=== PATIENT | male | born 1950 | race Caucasian/White ===

== ENCOUNTER 2018-06-21 08:26 | Day surgery (SDC) | payer MEDICARE ==
[2018-06-17 10:55] VITALS: BMI 28.8
[~2018-06-21 08:26] MED LIST: LACTATED RINGERS 1,000 ML IV SCH; LIDOCAINE 1% 20 ML VIAL (10MG/ML) FOR IV START INTRADERMA PRN; MIDAZOLAM 2 MG/2 ML VIAL IV PRN
[2018-06-21 08:49] VITALS: RESP 18; TEMP 97.7
[2018-06-21] MEDS ORDERED: PROPOFOL 10 MG/ML 20 ML VIAL IV ONE (09:42)
[2018-06-21] MEDS ORDERED: GLYCOPYRROLATE 0.2 MG/ML 2 ML VIAL ONE (09:42)
[2018-06-21] MEDS ORDERED: LIDOCAINE 1% INJ 10MG/ML (20 ML MDV) ONE (09:42)
[2018-06-21 10:24] VITALS: BP 106/78; PULSE 68
--- NOTE | 2018-06-21 14:41 | P.PCN ---
Date of Procedure: 06/21/18 Procedure(s) Performed: Procedure: Esophagogastroduodenoscopy Preoperative diagnosis: History of esophageal stricture. Postoperative diagnosis: Small sliding hiatal hernia with no limitation to the lumen or restriction to the advancement of the endoscope. Preparation and sedation: Were provided by anesthesia. Brief clinical history: The patient is a 68-year-old male who underwent an upper endoscopy in March of last year because of intermittent dysphagia of several years duration and abnormal barium swallow. He was found to have deformity and stenosis at the level of the GE junction and a small sliding hiatal hernia. Biopsies showed gastroesophagitis. He has been on PPI and has been improved. This evaluation is to assess the area of stenosis and ascertain that there was no underlying malignancy or other pathology. Procedure: With the patient on his left lateral decubitus position and after informed consent and adequate sedation, I passed the Olympus GIF H190 video upper endoscope through the cricopharyngeus down the esophagus. GE junction was around 40 cm from the incisors and there was no hesitation to the advancement of the endoscope into the stomach or any obvious stricture to indicate dilation. No tumors or masses were seen. The endoscope was then passed into the stomach which was insufflated with air and inspected in detail including the retroflex view in the cardia. There was no limitation of the space around the endoscope as seen in the retroflex view in the cardia. The stomach did not show any obvious abnormalities. Pyloric channel, duodenal bulb , post bulbar area and descending duodenum appeared within normal limits. Further dilation or biopsies were not indicated then the endoscope was withdrawn. The patient tolerated the procedure well. Plan: The patient was reassured. He will follow up with you as planned and I would be happy to see as needed.
== END 2018-06-21 10:56 | disposition home or self-care (01) ==
LOC: ORWHC2ENDO 08:26
DX: K44.9 Diaphragmatic hernia without obstruction or gangrene (principal); I25.10 Atherosclerotic heart disease of native coronary artery without angina pectoris; I10 Essential (primary) hypertension; E78.5 Hyperlipidemia, unspecified; K21.9 Gastro-esophageal reflux disease without esophagitis; Z79.899 Other long term (current) drug therapy; Z88.5 Allergy status to narcotic agent; Z87.891 Personal history of nicotine dependence
CPT/HCPCS: 43235; J2001; J2704

== ENCOUNTER → 2021-01-21 | Outpatient (CLI) | payer MEDICARE ==
--- NOTE | 2021-01-21 07:52 | CTL ---
EXAMINATION TYPE: CT Low Dose Lung DATE OF EXAM ORDERED: 01/21/2021 HISTORY: Long-term tobacco use. Lung cancer screening CT DLP: 109.[address] CTDI: 3.1 mGy Automated exposure control for dose reduction was used. SCREENING VISIT: Baseline study COMPARISON: Chest CT October 02, 2015 TECHNIQUE: Low dose computed tomography scan was performed through the chest at 1 mm thick sections a nd reconstructed images in the coronal plane at [address] DIAGNOSTIC QUALITY: Satisfactory FINDINGS: LUNG NODULES: Present, detailed below: There is a 5.5 x 4.3 mm right upper lobe nodule axial image 82 with some central calcification. There is 6.6 x 6.6 mm micronodule in the subpleural region of the lingula on axial image 208. There is 7.9 x 4.2 mm subpleural nodule left lower lobe axial image 216. Some additional scattered micronodules. LUNGS: COPD: Severity: [id number] Fibrosis: Severity: Lrud-ii-[id number] greatest in the periphery and apices Lymph nodes: No greater than 1 cm Other findings: Non- RIGHT PLEURAL SPACE: Effusion: None Calcification: None Thickening: None Pneumothorax: None LEFT PLEURAL SPACE: Effusion: None Calcification: None Thickening: None Pneumothorax: None HEART: Heart Size: Normal Coronary calcification: [id number]-wv-skkefasa in the LAD Pericardial effusion: None OTHER FINDINGS: Upper abdomen: None Bony thorax: Slight scoliotic curvature. Surgical change to left clavicle is partially imaged. Supraclavicular region: None Other: None IMPRESSION: Mild to moderate emphysematous and pulmonary fibrotic changes with few scattered small no dules up to 6.[address] LUNG RAD AND CT CHEST RECOMMENDATION: Lung-Rad 3 Probably Benign: 6 month follow-up LDCT. S Modifier (other clinically significant findings): None
== END | disposition home or self-care (01) ==
LOC: RADCTMAIN 06:59
PROVIDERS: ATTEND Family Medicine
DX: Z12.2 Encounter for screening for malignant neoplasm of respiratory organs (principal); R91.8 Other nonspecific abnormal finding of lung field; J43.9 Emphysema, unspecified; J84.10 Pulmonary fibrosis, unspecified; Z87.891 Personal history of nicotine dependence
CPT/HCPCS: 71271

== ENCOUNTER → 2021-07-24 | Outpatient (CLI) | payer MEDICARE ==
--- NOTE | 2021-07-24 09:32 | CTL ---
EXAMINATION TYPE: CT Low Dose Lung DATE OF EXAM ORDERED: 07/24/2021 HISTORY: Personal history of tobacco use. Lung cancer screening CT DLP: 119.[address] CTDI: 3.20 mGy Automated exposure control for dose reduction was used. SCREENING VISIT: First follow-up COMPARISON: CT dated 01/21/2021 TECHNIQUE: Low dose computed tomography scan was performed through the chest at 1 mm thick sections a nd reconstructed images in multiple planes at 1 mm and [address] DIAGNOSTIC QUALITY: Satisfactory FINDINGS: LUNG NODULES: Right upper lobe solid [address] image 81. This nodule is stable. Lingula solid [address] image 222. This nodule is stable. Left lower lobe posterior solid [address] image #229, stable. Left lower lobe pleural-based solid 7 mm nodule, image #224, stable. Right upper lobe posterior pleural-based nodule measuring 7 mm, solid, image #94, stable. Other scattered smaller bilateral pulmonary nodules, all stable compared to the previous. LUNGS: COPD: Severity: Moderate Fibrosis: Severity: Mild to moderate Lymph nodes: No pathologically enlarged lymph nodes Other findings: Stable chronic atelectasis at the medial aspect of the right lung apex. RIGHT PLEURAL SPACE: Effusion: None Calcification: None Thickening: None Pneumothorax: None LEFT PLEURAL SPACE: Effusion: None Calcification: None Thickening: None Pneumothorax: None HEART: Heart Size: Normal Coronary Calcification: Mild to moderate Pericardial Effusion: None OTHER FINDINGS: Upper abdomen: None Bony thorax: Chronic right scapular and bilateral rib fractures. Previous left clavicular fixation, n ot completely included in the scan. Supraclavicular region: None Other: Scattered arterial atherosclerotic calcifications IMPRESSION: Stable bilateral pulmonary nodules measuring up to 7 mm as described above. No new or pro gressive lung lesion. Incidental findings as described above. CT LUNG RAD AND CT CHEST RECOMMENDATION: Category 2, benign appearance or behavior, continuing annual screening with LDCT in 12 months. S Modifier (other clinically significant findings): None
== END | disposition home or self-care (01) ==
LOC: RADCTMAIN 08:27
PROVIDERS: ATTEND Family Medicine
DX: Z12.2 Encounter for screening for malignant neoplasm of respiratory organs (principal); R91.8 Other nonspecific abnormal finding of lung field; Z87.891 Personal history of nicotine dependence
CPT/HCPCS: 71271

== ENCOUNTER 2021-08-09 08:02 | Day surgery (SDC) | payer MEDICARE ==
[2021-08-06 16:18] VITALS: BMI 29.5
[~2021-08-09 08:02] MED LIST changes: -LIDOCAINE 1% 20 ML VIAL (10MG/ML) FOR IV START INTRADERMA PRN; -MIDAZOLAM 2 MG/2 ML VIAL IV PRN
[2021-08-09 08:30] VITALS: TEMP 98.2
[2021-08-09] MEDS ORDERED: LIDOCAINE 1% INJ 10MG/ML (20 ML MDV) ONE (09:11)
[2021-08-09] MEDS ORDERED: PROPOFOL 10 MG/ML 20 ML VIAL IV ONE (09:11)
--- NOTE | 2021-08-09 09:24 | P.PCN ---
Date of Procedure: 08/09/21 Procedure(s) Performed: BRIEF HISTORY: Patient is a 71-year-old, pleasant,white male scheduled for an upper endoscopy as a part of evaluation of progressive dysphagia to solids for the last 2 years duration. His. History of esophageal stricture that was dilated few years ago. PROCEDURE PERFORMED: Esophagogastroduodenoscopy with balloon dilation . PREOPERATIVE DIAGNOSIS: progressive dysphagia to solids of 2 years duration IV sedation per anesthesia. PROCEDURE: After informed consent was obtained, the patient was brought into the endoscopy unit. IV sedation was administered by Anesthesia under continuous monitoring. Initially the Olympus GIF-140 video endoscope was inserted into the mouth. Esophagus intubated without any difficulty. It was gradually advanced into the s distal esophagus and there was a tight stricture noted. The scope could not be advanced through the stricture. At this time I proceeded withballoon dilation using 12 mm and 13.5 mm TTS balloon in a sequential fashion for 30 seconds. Following this I was able to advance the scope into the tomach and duodenum and carefully examined. The bulb and the second part of the duodenum appeared normal. The scope at this time was withdrawn to the stomach, adequately insufflated with air, and upon careful examination, mucosa of the antrum, body, cardia and the fundus appeared normal. The scope was then withdrawn into the esophagus. small hiatal hernia. The GE junction was located at 39 cm from the incisors. there was circumferential erythema with erosions at the GE junction consistent with LA grade B reflux esophagitis. The esophagus appeared normal. There were no erosions or ulcerations seen and the patient tolerated the procedure well. IMPRESSION: 1. Tight distal esophageal stricture status post balloon dilation using 12 and 13.5 mm TTS balloon in a sequential fashion as described above. 2. LA grade B reflux esophagitis and small hiatal hernia. . RECOMMENDATIONS: The findings of this examination were discussed with the patient as well as his family. He was advised to increase omeprazole to 20 mg twice daily. He'll remain on a clear liquid diet for lunch today. Advance diet as tolerated tomorrow. Follow up in office in 3 months..
[2021-08-09 09:41] VITALS: RESP 16
[2021-08-09 09:56] VITALS: BP 109/70; PULSE 64
== END 2021-08-09 10:12 | disposition home or self-care (01) ==
LOC: ORWHC2ENDO 08:02
PROVIDERS: ATTEND Internal Medicine Gastroenterology
DX: K22.2 Esophageal obstruction (principal); I25.119 Atherosclerotic heart disease of native coronary artery with unspecified angina pectoris; I25.83 Coronary atherosclerosis due to lipid rich plaque; I10 Essential (primary) hypertension; E78.5 Hyperlipidemia, unspecified; I25.2 Old myocardial infarction; Z96.643 Presence of artificial hip joint, bilateral; Z79.891 Long term (current) use of opiate analgesic; Z79.02 Long term (current) use of antithrombotics/antiplatelets; Z79.82 Long term (current) use of aspirin; Z88.5 Allergy status to narcotic agent; Z79.899 Other long term (current) drug therapy; Z98.890 Other specified postprocedural states
CPT/HCPCS: 43249; J2001; J2704; C1726

== ENCOUNTER 2022-03-18 07:51 | Day surgery (SDC) | payer MEDICARE ==
[2022-03-17 10:32] VITALS: BMI 29.5
[~2022-03-18 07:51] MED LIST changes: +LIDOCAINE 1% (10MG/ML) FOR IV START INTRADERMA PRN
[2022-03-18 08:22] VITALS: RESP 16; TEMP 96.7
[2022-03-18] MEDS ORDERED: PROPOFOL 10 MG/ML 20 ML VIAL IV ONE (09:09)
--- NOTE | 2022-03-18 09:29 | P.PCN ---
Date of Procedure: 03/18/22 Procedure(s) Performed: BRIEF HISTORY: Patient is a 72-year-old pleasant white male scheduled for an elective colonoscopy as a part of evaluation of prior history of colon polyps. Last colonoscopy was 5 years ago. PROCEDURE PERFORMED: Colonoscopy with snare polypectomy PREOPERATIVE DIAGNOSIS: History of colon polyps. IV sedation per Anesthesia. PROCEDURE: After informed consent was obtained, the patient, was brought into the endoscopy unit. IV sedation was administered by Anesthesia under continuous monitoring. Digital rectal examination was normal. Initially the Olympus CF-160 flexible video colonoscope was then inserted in the rectum, gradually advanced into the cecum without any difficulty. Careful examination was performed as the scope was gradually being withdrawn. Ileocecal valve and the appendiceal orifice were visualized and appeared normal. Prep was excellent. Mucosa of the cecum, ascending colon, we normal. In the Hepatic flexure there was a 3 mm, 4 mm 5 mm polyps removed by snare polypectomy. In the transverse colon there was another 5 mm polyp removed by snare polypectomy. In the sigmoid colon there was a 5 mm sessile polyp removed by snare polypectomy. Rest of the transverse colon, descending colon, sigmoid colon, and rectum appeared normal. Scattered sigmoid diverticulosis seen. The proximal rectum there was a 5 mm polyp removed by snare polypectomy. Retroflexion was performed in the rectum and no lesions were seen. The patient tolerated the procedure well. IMPRESSION: 3 mm, 4 mm and 5 mm hepatic flexure polyp status post polypectomy 5 mm transverse colon polyp status post polypectomy 5 mm sigmoid polyp status post polypectomy 5 mm rectal polyp status post polypectomy Scattered sigmoid diverticulosis RECOMMENDATIONS: Findings of this examination were discussed with the patient as well as his family. He was advised to follow with the biopsy results. If the biopsy reveals adenoma he can have a repeat colonoscopy in 5 years..
[2022-03-18 09:50] VITALS: BP 112/67; PULSE 70
== END 2022-03-18 10:23 | disposition home or self-care (01) ==
LOC: ORWHC2ENDO 07:51
PROVIDERS: ATTEND Internal Medicine Gastroenterology
DX: Z12.11 Encounter for screening for malignant neoplasm of colon (principal); K57.30 Diverticulosis of large intestine without perforation or abscess without bleeding; D12.3 Benign neoplasm of transverse colon; D12.5 Benign neoplasm of sigmoid colon; D12.8 Benign neoplasm of rectum; Z86.010 Personal history of colon polyps; E78.5 Hyperlipidemia, unspecified; I25.10 Atherosclerotic heart disease of native coronary artery without angina pectoris; J44.9 Chronic obstructive pulmonary disease, unspecified; K21.9 Gastro-esophageal reflux disease without esophagitis; C61 Malignant neoplasm of prostate; Z79.899 Other long term (current) drug therapy
CPT/HCPCS: 88305; 45385; J2704

== ENCOUNTER → 2022-11-10 | Outpatient (CLI) | payer MEDICARE ==
--- NOTE | 2022-11-10 09:57 | CTL ---
EXAMINATION TYPE: CT Low Dose Lung DATE OF EXAM ORDERED: 11/10/2022 COMPARISON: 07/24/2021 HISTORY: . Low Dose CT Lung Screening CT DLP: 117.[address] CTDI: 3.1 mGy IV CONTRAST USED: None. SCREENING VISIT: Third TECHNIQUE: Low dose computed tomography scan was performed through the chest at 1 millimeter thick se ctions and reconstructed images in the coronal plane at [address] DIAGNOSTIC QUALITY: Satisfactory FINDINGS: LUNG NODULES: 5 mm pulmonary nodule right upper lobe image 100 sequence 4. Nodular parenchymal scarring right upper lobe medially image 100 of sequence 4 unchanged from prior study. Right upper lobe 5 mm pulmonary no dule image 144 sequence 4 unchanged. Stable 6 mm pulmonary nodule subpleural location lingula image 2 17 sequence 4. Again noted 5.3 mm left lower lobe pulmonary nodule image 230 sequence 4 which is smal ler in size with prior measurement of 7.1 mm.. LUNGS: COPD: Severity: Moderate Fibrosis: Severity: Mild Lymph nodes: None Other findings: None RIGHT PLEURAL SPACE: Effusion: None Calcification: None Thickening: None Pneumothorax: None LEFT PLEURAL SPACE: Effusion: None Calcification: None Thickening: None Pneumothorax: None HEART: Heart Size: Mildly enlarged Coronary calcification: Mild Pericardial effusion: None OTHER FINDINGS: Upper abdomen: No significant abnormality Bony thorax: Degenerative changes Supraclavicular region: No significant abnormalityOther: No significant abnormalityI IMPRESSION: Essentially stable or slightly improved pulmonary nodularity. No new nodules identified. FOLLOW UP CT CHEST RECOMMENDATION: Follow-up screening in one year CT LUNG RAD: LUNG RAD CATEGORY 2 benign appearance and her behavior.
== END | disposition home or self-care (01) ==
LOC: RADCTMAIN 08:33
PROVIDERS: ATTEND Family Medicine
DX: Z12.2 Encounter for screening for malignant neoplasm of respiratory organs (principal); R91.1 Solitary pulmonary nodule; Z87.891 Personal history of nicotine dependence
CPT/HCPCS: 71271

== ENCOUNTER → 2023-04-21 | Outpatient (CLI) | payer MEDICARE ==
--- NOTE | 2023-04-21 08:54 | MR ---
EXAMINATION TYPE: MR cervical spine wo con DATE OF EXAM: 04/21/2023 8:34 AM CLINICAL INDICATION:Male, 73 years old with history of M47.812 neck pain; PHH, Headache, Neck pain in to rt arm COMPARISON: 03/05/2023, 10/02/2015. TECHNIQUE: Multi planar, multi sequence imaging was performed utilizing: T1-weighted, T2-weighted, an d turbo inversion recovery imaging of the cervical spine. IV Contrast: cc (none if empty) FINDINGS: Alignment: The cervical vertebral bodies have preserved heights. Alignment is within normal limits gi lidia patient positioning. Bones: Scattered Modic endplate changes with osteophytes and disc space narrowing. Multilevel degener ative disc disease is noted and most pronounced at the C5-C7 vertebral levels. Cord: The spinal cord is unremarkable with regards to their signal intensity and morphology. Discs: Multilevel disc desiccation is present. C2-C3: No significant disc pathology. The spinal canal is patent. No neural foraminal stenosis. C3-C4: A disc osteophyte complex is present with mild spinal canal stenosis. Bilateral facet and unc overtebral joint arthropathy are present with moderate bilateral neural foraminal stenosis. C4-C5: A disc osteophyte complex is present which minimally narrows the ventral subarachnoid space. Bilateral facet and uncovertebral joint arthropathy are present with moderate to severe bilateral ne ural foraminal stenosis. C5-C6: A disc osteophyte complex is present with mild spinal canal stenosis. Bilateral facet and unc overtebral joint arthropathy are present with moderate to severe bilateral neural foraminal stenosis. C6-C7: No significant disc pathology. The spinal canal is patent. Bilateral facet and uncovertebral joint arthropathy are present with moderate bilateral neural foraminal stenosis. C7-T1: No significant disc pathology. The spinal canal is patent. No neural foraminal stenosis. Other: None. IMPRESSION: 1. No evidence for disc herniation or significant spinal canal stenosis. 2. Multilevel disc degeneration with associated osteoarthritic changes. Findings worse at C4-C5 and C 5-C6 with marked for bilateral neural foraminal stenosis.
== END | disposition home or self-care (01) ==
LOC: RADMRIMAIN 07:48
PROVIDERS: ATTEND Orthopaedic Surgery
DX: M47.812 Spondylosis without myelopathy or radiculopathy, cervical region (principal); M50.31 Other cervical disc degeneration, high cervical region; M99.71 Connective tissue and disc stenosis of intervertebral foramina of cervical region
CPT/HCPCS: 72141

== ENCOUNTER → 2023-05-13 | Outpatient (CLI) | payer MEDICARE ==
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
== END | disposition home or self-care (01) ==
LOC: RADMRIMAIN 09:30
PROVIDERS: ATTEND Orthopaedic Surgery
DX: M19.011 Primary osteoarthritis, right shoulder (principal); M25.811 Other specified joint disorders, right shoulder; M67.813 Other specified disorders of tendon, right shoulder

== ENCOUNTER → 2023-06-01 | Outpatient (CLI) | payer MEDICARE ==
[2023-06-01 15:08] LABS: Basophils # (A) 0.05 X 10*3/uL (0.00-0.10); Basophils % (A) 1.2 %; Eosinophils # (A) 0.32 X 10*3/uL (0.04-0.35); Eosinophils % (A) 7.9 %; HCT 44.6 % (39.6-50.0); HGB 14.8 g/dL (13.0-17.0); Lymphocytes # (A) 0.92 X 10*3/uL (0.90-5.00); Lymphocytes % (A) 22.8 %; MCH 31.8 pg (27.0-32.0); MCHC 33.2 g/dL (32.0-37.0); MCV 95.7 FL (80.0-97.0); Mean Platelet Volume 10.9 FL (9.5-12.2); Monocytes # (A) 0.32 X 10*3/uL (0.20-1.00); Monocytes % (A) 7.9 %; NRBC Per 100 WBC 0 X 10*3/uL (0.00-0.01); Neutrophils # (A) 2.41 X 10*3/uL (1.80-7.70); Neutrophils % (A) 59.7 %; Platelet Count 157 X 10*3/uL (140-440); RBC 4.66 X 10*6/uL (4.40-5.60); RDW 14.3 % (11.5-14.5); WBC 4.04 X 10*3/uL (4.50-10.00)
[2023-06-01 15:21] LABS: Anion Gap 11.2 mmol/L (4.00-12.00); Carbon Dioxide 24.8 mmol/L (21.6-31.8); Potassium 4.3 mmol/L (3.5-5.5)
== END | disposition home or self-care (01) ==
LOC: LABWHC1 09:19
PROVIDERS: ATTEND Orthopaedic Surgery
DX: M75.41 Impingement syndrome of right shoulder (principal)
CPT/HCPCS: 36415; 80051; 85025

== ENCOUNTER → 2023-06-02 | Outpatient (CLI) | payer MEDICARE ==
[2023-06-02 08:57] VITALS: BP 128/82; PULSE 76; RESP 15; TEMP 98.2
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
== END ==
LOC: PNWHC3 07:31
PROVIDERS: ATTEND Specialist
DX: M48.02 Spinal stenosis, cervical region (principal); M50.323 Other cervical disc degeneration at C6-C7 level; M19.90 Unspecified osteoarthritis, unspecified site; E78.5 Hyperlipidemia, unspecified; I10 Essential (primary) hypertension; G47.33 Obstructive sleep apnea (adult) (pediatric); Z87.891 Personal history of nicotine dependence; Z79.82 Long term (current) use of aspirin; Z79.899 Other long term (current) drug therapy; Z79.02 Long term (current) use of antithrombotics/antiplatelets; Z88.5 Allergy status to narcotic agent
CPT/HCPCS: 99211

== ENCOUNTER 2023-06-17 05:50 | Day surgery (SDC) | payer MEDICARE ==
[2023-06-11 16:13] VITALS: BMI 26.6
--- NOTE | 2023-06-16 19:36 | HP ---
HISTORY AND PHYSICAL DATE OF SURGERY: 06/17/2023. HISTORY OF PRESENT ILLNESS: Nazario Neff is a 73-year-old gentleman seen with progressive right shoulder pain. We discussed options for treatment. He elected to proceed with right shoulder arthroscopy. Consent regarding clearance was obtained. Preoperative cardiac clearance was provided by Dr. Hammad Day. PAST MEDICAL HISTORY: Cardiovascular disease, hypertension, hypothyroidism. PAST SURGICAL HISTORY: Total knee arthroplasty, right knee arthroscopy, left shoulder arthroscopy, prostatectomy. DAILY MEDICATIONS: 1. Aspirin. 2. Atenolol. 3. Atorvastatin. 4. Levothyroxine. 5. Omeprazole. 6. Naprosyn. ALLERGIES: Morphine. SOCIAL HISTORY: Smokes cigarettes. PHYSICAL EVALUATION OF THE RIGHT SHOULDER: Flexion is 150 degrees, abduction is 140 degrees. External rotation is 30 degrees with significant weakness. Tenderness along the anterolateral acromion and rotator cuff insertion site. Impingement is positive at 100 degrees. Cross-body adduction sign is positive. Drop-arm sign is positive. Distal neurovascular exam is intact. IMAGING STUDIES: Right shoulder radiographs revealed a type 3 acromion, evidence for severe acromioclavicular joint osteoarthritis, and cystic changes of the tuberosity. MRI of right shoulder revealed a rotator cuff tendon tear, impingement, and acromioclavicular joint osteoarthritis. IMPRESSION: 1. Right shoulder impingement with partial rotator cuff tear. 2. Right shoulder acromioclavicular joint osteoarthritis. 3. Hypertension. 4. Hyperlipidemia. 5. Hypothyroidism. 6. Cardiovascular disease. PLAN: Right shoulder arthroscopy with subacromial decompression, arthroscopic rotator cuff repair, Jackelyn procedure, and debridement. MMODL / IJN: [id number] /
[2023-06-17] MEDS ORDERED: LACTATED RINGERS 1,000 ML IV SCH (06:11)
[2023-06-17] MEDS ORDERED: DEXAMETHASONE SOD PHOSPHATE 4 MG/ML 1 ML VIAL IV ONE (06:11)
[2023-06-17] MEDS ORDERED: ONDANSETRON 4 MG/2 ML VIAL IVP ONE (06:11)
[2023-06-17] MEDS ORDERED: fentaNYL (PF) 50 MCG/ML 2 ML AMP IV PRN (07:00)
[2023-06-17] MEDS ORDERED: MIDAZOLAM 2 MG/2 ML VIAL IVP ONE (07:15)
[2023-06-17] MEDS ORDERED: NEOSTIGMINE 1 MG/ML 10 ML VIAL ONE (07:29)
[2023-06-17] MEDS ORDERED: ROPIVACAINE 5 MG/ML 30 ML VIAL ONE (07:29)
[2023-06-17] MEDS ORDERED: ROCURONIUM 10 MG/ML (5 ML VIAL) IV ONE (07:29)
[2023-06-17] MEDS ORDERED: GLYCOPYRROLATE 0.2 MG/ML 2 ML VIAL ONE (07:29)
[2023-06-17] MEDS ORDERED: fentaNYL (PF) 50 MCG/ML 2 ML AMP ONE (07:29)
[2023-06-17] MEDS ORDERED: LIDOCAINE 1% INJ 10MG/ML (20 ML MDV) ONE (07:29)
[2023-06-17] MEDS ORDERED: SUCCINYLCHOLINE CHLORIDE 200 MG/10 ML VIAL IV ONE (07:29)
[2023-06-17] MEDS ORDERED: HEPARIN SODIUM,PORCINE 100 UNIT/ML 5 ML VIAL IV ONE (07:29)
[2023-06-17] MEDS ORDERED: PROPOFOL 10 MG/ML 20 ML VIAL IV ONE (07:29)
[2023-06-17] MEDS ORDERED: PHENYLEPHRINE-0.9% NACL SYG 1,000 MCG/10 ML SYRINGE ONE (07:29)
[2023-06-17] MEDS ORDERED: LACTATED RINGERS 1,000 ML IV ONE (08:33)
--- NOTE | 2023-06-17 09:04 | P.OP ---
Date of Procedure: 06/17/23 Preoperative Diagnosis: Right shoulder impingement Postoperative Diagnosis: 1. Right shoulder rotator cuff tear 2. Right shoulder impingement 3. Right shoulder acromioclavicular joint osteoarthritis 4. Right shoulder bicipital tendinitis 5. Right shoulder superficial labral tear Procedure(s) Performed: 1. Right shoulder arthroscopic rotator cuff repair 2. Right shoulder arthroscopic subacromial decompression 3. Right shoulder arthroscopic Jackelyn procedure 4. Right shoulder arthroscopic biceps tenotomy 5. Right shoulder arthroscopy debridement labral tear Implants: 1Arthrex 5.5 swivel lock anchor Anesthesia: GETA, regional (Interscalene block) Surgeon: Garrett De La Cruz Occupational Health Professional #1: Young Massey Estimated Blood Loss (ml): 8 Pathology: none sent Condition: stable Disposition: PACU Indications for Procedure: 73-year-old patient seen with progressive right shoulder pain. After having treatment options discussed, he elected to proceed with arthroscopy. Operative Findings: See description of procedure Description of Procedure: Patient underwent an interscalene block by department of anesthesia. The patient was then taken to the operative suite. The patient underwent a general anesthetic by the department of anesthesia. The patient was placed into a lateral position and secured. There was appropriate padding of the bony prominence. Right shoulder was then prepped and draped in normal sterile orthopedic fashion. We placed the extremity in 10 pounds of longitudinal traction. A posterior incision was now made for a posterior working portal site. The trocar and cannula were inserted into the glenohumeral joint. Arthroscopy was initiated. Spinal needle was now inserted anteriorly, to ascertain the anterior working portal site. An incision was now made in that area, a trocar was inserted followed by a probe. There was some superficial tearing of the superior/anterior labrum. There was hyperemia long head biceps tendon. There were mild grade I chondromalacia changes along the anterior aspect of the glenoid fossa otherwise no significant chondromalacia was present. I debrided the superficial labral tear getting down to stable labral tissue. I performed arthroscopic biceps tenotomy. The residual labrum was stable. Instruments were now removed from the glenohumeral joint. Utilizing the posterior working portal site, the trocar and cannula were inserted into the subacromial space. Arthroscopy initiated. I made an incision 2 fingerbreadths lateral to the acromion. I introduced my trocar followed by my ArthroCare ablator. I now began ablating thick subacromial bursal tissue, which exposed the undersurface of the anterior acromion. There was diminished subacromial space. There was a very prominent anterior acromion. A motorized bur was introduced and a subacromial decompression was performed. I also excised some osteophytes off the inferior aspect of the distal clavicle. The AC joint was visualized and noted to be fairly arthritic. The motorized bur was introduced in the anterior portal site and a Jackelyn procedure was performed without difficulty, decompressing the AC joint nicely. I turned my attention to the rotator cuff. There was a full-thickness perforation/tear along the distal supraspinatus area. I debrided the margins getting down to a stable tendon tissue. The tear measured about 1.5 cm and was freely mobile over the footprint. I abraded the footprint with a motorized bur. With the assistance of a Vlad COULTER past 3 inverted mattress sutures with good bites of rotator cuff tendon. I punched a hole in the footprint area for insertion of an anchor. All 6 limbs of suture were passed through the eyelet of an Arthrex 5.5 swivel lock anchor. I placed the eyelet into her prepunched hole. I held in position while Vlad COULTER tensioned all 6 limbs of suture and deployed the anchor with good fixation noted. All residual suture limbs were now clipped. We had good compression of the tendon along the entire footprint. Instruments now removed from the portal sites. All portal sites were approximated with nylon suture. Sterile dressings were applied followed by a shoulder sling. Young COULTER assisted in this complex case. The patient was awakened, transferred to a bed, and taken to recovery in stable condition.
[2023-06-17 09:30] VITALS: TEMP 98
[2023-06-17 10:45] VITALS: BP 126/83; PULSE 58; RESP 14
--- NOTE | 2023-06-18 10:26 | P.ANPRN ---
Procedure Note - Anesthesia - Nerve Block Performed Right Interscalene Single Time Out Performed: Yes Date of Procedure: 06/17/23 Procedure Start Time: 07:14 Procedure Stop Time: 07:18 Location of Patient: PreOp Indication: Acute Post-Operative Pain, Requested by Surgeon Sedation Type: Sedate with meaningful contact maintained Preparation: Sterile Prep Position: Supine Needle Types: Pajunk Needle Gauge: 21 Ultrasound used to visualize needle placement: Yes Ultrasound used to observe medication spread: Yes Blood Aspirated: No Pain Paresthesia on Injection Noted: No Resistance on Injection: Normal Image Stored and Saved: Yes Events: Uneventful and Well Tolerated (Dexamethasone 4 mg plus ropivacaine 20 cc)
== END 2023-06-17 10:50 | disposition home or self-care (01) ==
LOC: OR 05:50
PROVIDERS: ATTEND Orthopaedic Surgery
DX: S43.431A Superior glenoid labrum lesion of right shoulder, initial encounter (principal); M75.41 Impingement syndrome of right shoulder; M19.011 Primary osteoarthritis, right shoulder; M75.21 Bicipital tendinitis, right shoulder; G89.18 Other acute postprocedural pain; I10 Essential (primary) hypertension; I25.10 Atherosclerotic heart disease of native coronary artery without angina pectoris; I25.2 Old myocardial infarction; E03.9 Hypothyroidism, unspecified; E78.5 Hyperlipidemia, unspecified; K21.9 Gastro-esophageal reflux disease without esophagitis; F17.210 Nicotine dependence, cigarettes, uncomplicated; Z96.651 Presence of right artificial knee joint; Z98.890 Other specified postprocedural states; Z79.02 Long term (current) use of antithrombotics/antiplatelets; Z79.82 Long term (current) use of aspirin; Z79.890 Hormone replacement therapy; Z79.899 Other long term (current) drug therapy; Z88.5 Allergy status to narcotic agent; Z95.5 Presence of coronary angioplasty implant and graft
CPT/HCPCS: 64415; 29827; 29828; 29826; 29824; C1713; J2250; J0330; J1642; J1100; J2710; J0690; J2405; J2001; J3010; J2795; J2704; J2371

== ENCOUNTER → 2023-07-16 | Outpatient (CLI) | payer MEDICARE ==
[2023-07-16 08:59] VITALS: BP 135/75; PULSE 88; RESP 15; TEMP 98.6
--- NOTE | 2023-07-16 14:36 | P.PAINPG ---
PQRS Measure Charge Sheet Comment: HISTORY OF PRESENT ILLNESS: A 73 yr old male w recent R Shoulder Impingement Surgery (May 2023) presents today w severe and chronic neck pain x 1 yr secondary to DDD, spondylosis and facet arthropathy without myelopathy for evaluation. Pt states pain level is provoked at 6/10 in intensity, constant, localized in the cervical spine, predominantly axial, achy in character w occasional L shoulder shooting pain. Pain is provoked by rotation and over head reaching. Pain is alleviated by PT x 5 wks in Apr 2023, heat, medications, repositioning and rest. Cervical disability score at 21. Interventional procedures include Medications include [place] 7.5/325mg, Naproxen, ASA REVIEW OF ORGAN SYSTEMS: CONSTITUTIONAL: No fevers or chills. No recent weight loss. NEUROLOGICAL: + numbness and tingling along the distal extremities. No seizure disorders or headaches. MUSCULOSKELETAL: + pain PSYCHIATRIC: Denies current depression or suicidal thoughts. Physical Examinations : Constitutional : Cooperative , not in acute distress . Neurologic : Cranial nerve II to XII intact. No focal neurological deficits. Psychiatric : alert & oriented x 3. Matching mood & appropriate affect. Judgment & insight intact. Musculoskeletal : Cervical Spine Motor strength in the deltoid and biceps: Normal right side. Normal Left side Motor strength biceps and the wrist extensors: Normal right side . Normal left side Motor strength in the triceps muscle: Normal right side. Normal left side Deep tendon reflexes: Normal at the biceps. Normal at Brachioradialis. Normal at triceps Vertebral body tenderness to deep palpation over C6 Cervical facet loading test: positive bilaterally Spurling test: positive bilaterally Neck distraction test: positive R C6-C7 Elaine sign: positive bilaterally Lumbar spine Motor strength lower extremities ,thigh and legs 5/5 Right side , 5/5 Left side Deep tendon reflexes : Normal Knee Jerk. Normal Ankle Jerk Vertebral body tenderness over Hodge Test positive Lumbar facet Loading Test: positive Right / positive Left Range of motion of the lumbar spine Flexion 30 degrees, extension 10 degrees Straight Leg Raise test: Left/ Right positive at degrees Travon test: positive right / positive left. Severe tenderness over the Sacroiliac joint on the Right / Left sides Gaenslen test: positive bilaterally Seated flexion test: positive bilaterally. Sacral spine : Severe tenderness over the Sacroiliac joint: right side / left side Range of motion: Flexion of the lumbar spine <60 degrees Range of motion: Extension of the lumbar spine <20 degrees Gaenslen's Test positive Travon test: positive right side / left side Thigh Thrust Test Sacral Thrust Test Imaging: MRI noncontrast of the cervical spine from 04/21/23 reviewed Assessment/ Plan : Cervical DDD Recommendation of BORIS C6-C7 #1. May need a series of injections for optimal pain relief. Risks, benefits of procedure discussed and patient verbalized understanding. Admits to anti- coagulant use or medical history of diabetes. Protocol for discontinuation/ continuation of medications socorro procedure discussed. All questions answered. I have spent greater than 30 minutes on patient care today. Dr Pierce was available by phone for the evaluation of this patient. The time was used to review the medical records including relevant urine studies and Prescription history (MAPs), review of the available imaging, evaluation and examination of the patient, coordination of care with the medical staff and if applicable referring physicians, as well as creation of the medical record PQRS Narrative: Smoking Status Former smoker Hx Alcohol Use (MH) No Home Medications: Ambulatory Orders HYDROcodone/APAP 7.5-325MG [[place] 7.5] 1 each PO TID PRN 04/11/14 atenoloL [Tenormin] 12.5 mg PO QAM 04/11/14 Clopidogrel [Plavix] 75 mg PO QAM 10/02/15 Aspirin 81 mg PO DAILY 04/19/18 LORazepam [Ativan] 1 mg PO TID PRN 04/19/18 Levothyroxine Sodium [Synthroid] 25 mcg PO QAM 04/19/18 Atorvastatin [Lipitor] 40 mg PO HS 08/06/21 Omeprazole 20 mg PO QAM 08/06/21 Controlled Substance Measures - Controlled Substance Measures Is patient prescribed a controlled substance at discharge?: No
== END ==
LOC: PNWHC3 08:02
PROVIDERS: ATTEND Specialist
DX: M50.323 Other cervical disc degeneration at C6-C7 level (principal); Z87.891 Personal history of nicotine dependence; Z79.82 Long term (current) use of aspirin; Z88.5 Allergy status to narcotic agent
CPT/HCPCS: 99211

== ENCOUNTER 2023-07-30 08:24 | Day surgery (SDC) | payer MEDICARE ==
[~2023-07-30 08:24] MED LIST changes: -LIDOCAINE 1% (10MG/ML) FOR IV START INTRADERMA PRN
[2023-07-30] MEDS ORDERED: IOPAMIDOL M200 10 ML VIAL ONE (09:02)
[2023-07-30] MEDS ORDERED: DEXAMETHASONE SOD PHOSPHATE 10 MG/ML 1 ML VIAL ONE (09:02)
[2023-07-30 09:03] VITALS: PULSE 80; TEMP 96.9
--- NOTE | 2023-07-30 09:15 | P.PCN ---
Date of Procedure: 07/30/23 Procedure(s) Performed: . PROCEDURE 1. Cervical epidural steroid injection under fluoroscopic guidance, C6-7 (fluoroscopy images available in the radiology department ) 2. Cervical epidurogram. PREOPERATIVE DIAGNOSIS: 1- Cervical Degenerative Disc Diseases 2-cervical spondylosis with cervical Facet arthropathy without myelopathy.3-cervical spinal stenosis POSTOPERATIVE DIAGNOSIS: : 1- Cervical Degenerative Disc Diseases , 2-cervical spondylosis with cervical Facet arthropathy without myelopathy. 3-cervical spinal stenosis ANESTHESIA: Local anesthesia with lidocaine 1% 3 ml only EBL 0 PROCEDURE INDICATION: The patient with neck pain and radiculitis unresponsive to conservative treatment consents for procedure. PROCEDURE DESCRIPTION / TECHNIQUE: The patient was seen and identified in the preoperative area. Risks, benefits, complications, including but not limited to infections ,bleeding , allergic reactions to the medications ,and not complete pain releife, and alternatives were discussed with the patient, the patient agreed to proceed with the procedure and signed the consent. Patient was taken to the OR and time out was completed. The patient was placed in the prone position on the procedure table. A pillow was placed under the patients chest to increase the cervical interlaminar space. The cervical area was prepped and draped in the usual sterile fashion. Vital signs were closely monitored during the procedure. Using anterior-posterior fluoroscopy, the C6-7 interlaminar space was identified and the skin over this site was marked and then infiltrated with 1% lidocaine subcutaneously. Subsequently, a 20-gauge 3-1/2-inch Tuohy epidural needle was inserted and advanced toward the epidural space by means of the ``hanging-drop technique and guided by AP and lateral fluoroscopy. The correct needle position in the epidural space was verified with the injection of 2 mL of the water soluble contrast dye Isovue-200 and observing an excellent epidurogram with the epidural spread of the dye, after negative aspiration for blood and CSF and in the absence of paresthesias. then, mixture containing 15 mg Dexamethasone and 2 ml of preservative-free normal saline injected and a washout of epidurogram was seen. Needle was withdrawn intact, skin was cleansed, and bandages were applied. Complications= none. Disposition= patient was placed in supine position and transferred to the recovery room area in stable condition and there was no evidence of upper or lower extremity motor or sensory deficit after the procedure patient was discharged from recovery room after discharge criteria met and home discharge instructions was given by the staff and patient will follow with the pain clinic in 2-4 weeks
[2023-07-30 09:40] VITALS: BP 124/75; RESP 16
--- NOTE | 2023-07-30 13:01 | FL ---
EXAMINATION TYPE: FL guided pain mgmt statistic DATE OF EXAM: 07/30/2023 FLUOROSCOPY Fluoroscopy time of 3 minutes 3 seconds was used during cervical epidural steroid injection. 1 image /s document/s the procedure. dap 0.82835 mGycm2.
== END 2023-07-30 09:39 | disposition home or self-care (01) ==
LOC: ORPAIN 08:24
PROVIDERS: ATTEND Anesthesiology
DX: M50.123 Cervical disc disorder at C6-C7 level with radiculopathy (principal); M48.02 Spinal stenosis, cervical region; M47.22 Other spondylosis with radiculopathy, cervical region; Z79.02 Long term (current) use of antithrombotics/antiplatelets; Z88.8 Allergy status to other drugs, medicaments and biological substances; Z88.5 Allergy status to narcotic agent
CPT/HCPCS: 62321; J1100; Q9966

== ENCOUNTER → 2023-08-27 | Outpatient (CLI) | payer MEDICARE ==
[2023-08-27 11:00] VITALS: BP 126/85; PULSE 69; RESP 16; TEMP 98
--- NOTE | 2023-08-27 14:01 | P.PAINPG ---
PQRS Measure Charge Sheet Comment: HISTORY OF PRESENT ILLNESS: A 73 yr old male w recent R Shoulder Impingement Surgery (May 2023) presents today w severe and chronic neck pain x 1 yr secondary to DDD, spondylosis and facet arthropathy without myelopathy for evaluation s/p BORIS C6-C7 #1. Pt states he experienced 80 % pain relief x 4 wks s/p procedure. Pt states pain level is provoked at 2 /10 in intensity, constant, localized in the cervical spine, predominantly axial, achy in character w occasional L shoulder shooting pain. Pain is provoked by rotation and over head reaching. Pain is alleviated by PT x 5 wks in Apr 2023, heat, medications, repositioning and rest. Cervical disability score at 21. Interventional procedures include BORIS C6-C7 x1 Medications include [place] 7.5/325mg, Naproxen, ASA REVIEW OF ORGAN SYSTEMS: CONSTITUTIONAL: No fevers or chills. No recent weight loss. NEUROLOGICAL: + numbness and tingling along the distal extremities. No seizure disorders or headaches. MUSCULOSKELETAL: + pain PSYCHIATRIC: Denies current depression or suicidal thoughts. Physical Examinations : Constitutional : Cooperative , not in acute distress . Neurologic : Cranial nerve II to XII intact. No focal neurological deficits. Psychiatric : alert & oriented x 3. Matching mood & appropriate affect. Judgment & insight intact. Musculoskeletal : Cervical Spine Motor strength in the deltoid and biceps: Normal right side. Normal Left side Motor strength biceps and the wrist extensors: Normal right side . Normal left side Motor strength in the triceps muscle: Normal right side. Normal left side Deep tendon reflexes: Normal at the biceps. Normal at Brachioradialis. Normal at triceps Vertebral body tenderness to deep palpation over C6 Cervical facet loading test: positive bilaterally Spurling test: positive bilaterally Neck distraction test: positive R C6-C7 Elaine sign: positive bilaterally Lumbar spine Motor strength lower extremities ,thigh and legs 5/5 Right side , 5/5 Left side Deep tendon reflexes : Normal Knee Jerk. Normal Ankle Jerk Vertebral body tenderness over Hodge Test positive Lumbar facet Loading Test: positive Right / positive Left Range of motion of the lumbar spine Flexion 30 degrees, extension 10 degrees Straight Leg Raise test: Left/ Right positive at degrees Travon test: positive right / positive left. Severe tenderness over the Sacroiliac joint on the Right / Left sides Gaenslen test: positive bilaterally Seated flexion test: positive bilaterally. Sacral spine : Severe tenderness over the Sacroiliac joint: right side / left side Range of motion: Flexion of the lumbar spine <60 degrees Range of motion: Extension of the lumbar spine <20 degrees Gaenslen's Test positive Travon test: positive right side / left side Thigh Thrust Test Sacral Thrust Test Imaging: MRI noncontrast of the cervical spine from 04/21/23 reviewed Assessment/ Plan : Cervical DDD Will manage residual pain and may RTC on an as needed basis. All questions answered. I have spent greater than 30 minutes on patient care today. Dr Pierce was available by phone for the evaluation of this patient. The time was used to review the medical records including relevant urine studies and Prescription history (MAPs), review of the available imaging, evaluation and examination of the patient, coordination of care with the medical staff and if applicable referring physicians, as well as creation of the medical record PQRS Narrative: Smoking Status Former smoker Hx Alcohol Use (MH) No Home Medications: Ambulatory Orders HYDROcodone/APAP 7.5-325MG [[place] 7.5] 1 each PO TID PRN 04/11/14 atenoloL [Tenormin] 12.5 mg PO QAM 04/11/14 Clopidogrel [Plavix] 75 mg PO QAM 10/02/15 Aspirin 81 mg PO DAILY 04/19/18 LORazepam [Ativan] 1 mg PO TID PRN 04/19/18 Levothyroxine Sodium [Synthroid] 25 mcg PO QAM 04/19/18 Atorvastatin [Lipitor] 40 mg PO HS 08/06/21 Omeprazole 20 mg PO QAM 08/06/21 Controlled Substance Measures - Controlled Substance Measures Is patient prescribed a controlled substance at discharge?: No
== END ==
LOC: PNWHC3 09:59
PROVIDERS: ATTEND Specialist
DX: M50.323 Other cervical disc degeneration at C6-C7 level (principal); M47.812 Spondylosis without myelopathy or radiculopathy, cervical region; G89.29 Other chronic pain; Z87.891 Personal history of nicotine dependence; Z88.5 Allergy status to narcotic agent; Z88.8 Allergy status to other drugs, medicaments and biological substances
CPT/HCPCS: 99211

== ENCOUNTER → 2023-11-18 | Outpatient (CLI) | payer MEDICARE ==
--- NOTE | 2023-11-18 10:24 | CTL ---
EXAMINATION TYPE: CT Low Dose Lung DATE OF EXAM ORDERED: 11/18/2023 HISTORY: 73-year-old male Z1 2.2, F1 7.210, current smoker with 25 pack-year history. Lung cancer scr eening CT DLP: 111.[address] CTDI: 3.0 mGy Automated exposure control for dose reduction was used. SCREENING VISIT: Annual follow-up COMPARISON: 11/10/2022 TECHNIQUE: Low dose computed tomography scan was performed through the chest at 1 mm thick sections a nd reconstructed images in multiple planes at 1 mm and [address] DIAGNOSTIC QUALITY: Satisfactory FINDINGS: Heart normal size without pericardial effusion. Mild LAD coronary artery calcifications. More pronoun dick circumflex coronary artery calcifications. Aorta normal caliber with conventional arch vessel branching anatomy. No thoracic lymphadenopathy by CT size criteria. Large caliber to the main right and left pulmonary arteries measuring up to 3.2 cm suggesting underly ing pulmonary arterial hypertension. Medium subpleural reticular change at the lung bases. Additional scattered mild pleural parenchymal s carring. Mild to moderate emphysematous change. Bandlike areas of scarring anterior right upper lobe. Stable 6 mm anterior right upper lung pulmonary nodule, axial image 136. Stable 6 mm nodule inferior lingula, axial image 220. 7 mm posterior left lower lobe pulmonary nodule, axial image 232 is unchanged. 4 mm pulmonary nodule left mid lung, axial image 199 is unchanged. No consolidation or pleural effusion. Tiny hiatal hernia. Visualized upper abdomen shows no gross adenopathy. Bones: No osseous destructive process. Chronic superior endplate Schmorl's node T12. IMPRESSION: 1. LungRADS 2, benign. Scattered stable 7 mm and smaller pulmonary nodules. 2. 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 Recommend smoking cessation. CT LUNG RAD AND CT CHEST RECOMMENDATION: Lung-Rad 2 Benign Appearance or Behavior: Continue annual sc reening with LDCT in 12 months. S Modifier (other clinically significant findings): None
== END | disposition home or self-care (01) ==
LOC: RADCTMAIN 09:09
PROVIDERS: ATTEND Family Medicine
DX: Z12.2 Encounter for screening for malignant neoplasm of respiratory organs (principal); F17.210 Nicotine dependence, cigarettes, uncomplicated; I27.21 Secondary pulmonary arterial hypertension; J43.9 Emphysema, unspecified; J84.10 Pulmonary fibrosis, unspecified
CPT/HCPCS: 71271

== ENCOUNTER → 2023-12-23 | Outpatient (CLI) | payer MEDICARE ==
[2023-12-23 18:34] LABS: Prostate Specific Antigen 0.05 ng/mL (0.000-6.500)
== END | disposition home or self-care (01) ==
LOC: LABWHC1 13:46
PROVIDERS: ATTEND Urology
DX: Z85.46 Personal history of malignant neoplasm of prostate (principal)
CPT/HCPCS: 36415; 82040; 84153; 84270; 84403

== ENCOUNTER → 2024-03-25 | Outpatient (CLI) | payer MEDICARE | END | disposition home or self-care (01) | LOC: LABWHC1 12:29 | PROVIDERS: ATTEND Urology | DX: Z53.9 Procedure and treatment not carried out, unspecified reason (principal) ==

== ENCOUNTER → 2024-03-25 | Outpatient (CLI) | payer MEDICARE | END | disposition home or self-care (01) | LOC: LABWHC1 12:27 | PROVIDERS: ATTEND Orthopaedic Surgery | DX: Z53.9 Procedure and treatment not carried out, unspecified reason (principal) ==

== ENCOUNTER → 2024-03-25 | Outpatient (CLI) | payer MEDICARE ==
[2024-03-25 18:29] LABS: Prostate Specific Antigen 0.05 ng/mL (0.000-6.500)
== END | disposition home or self-care (01) ==
LOC: LABWHC1 12:26
PROVIDERS: ATTEND Family Medicine
DX: E29.1 Testicular hypofunction (principal)
CPT/HCPCS: 36415; 84153; 84402; 84403; 85652; 86140

== ENCOUNTER → 2024-04-25 | Outpatient (CLI) | payer MEDICARE | END | disposition home or self-care (01) | LOC: LABWHC1 13:31 | PROVIDERS: ATTEND Family Medicine | DX: M25.552 Pain in left hip (principal) | CPT/HCPCS: 36415; 86140 ==

== ENCOUNTER → 2024-06-20 | Outpatient (CLI) | payer MEDICARE | END | disposition home or self-care (01) | LOC: LABWHC1 15:07 | PROVIDERS: ATTEND Urology | DX: Z85.46 Personal history of malignant neoplasm of prostate (principal) | CPT/HCPCS: 36415; 84153 ==

== ENCOUNTER → 2024-09-26 | Outpatient (CLI) | payer MEDICARE | END | disposition home or self-care (01) | LOC: LABWHC1 13:34 | PROVIDERS: ATTEND Urology | DX: Z85.46 Personal history of malignant neoplasm of prostate (principal) | CPT/HCPCS: 36415; 84153 ==

== ENCOUNTER → 2024-12-22 | Outpatient (CLI) | payer MEDICARE | END | disposition home or self-care (01) | LOC: LABWHC1 10:02 | PROVIDERS: ATTEND Urology | DX: Z85.46 Personal history of malignant neoplasm of prostate (principal) | CPT/HCPCS: 36415; 84153 ==